=== PATIENT | female | born 1970 | race Caucasian/White ===

== ENCOUNTER 2016-07-31 05:47 | Emergency (ER) | payer SELFPAY ==
[2016-07-31 06:50] LABS: BASO % 0.4 % (0.0-1.0); EOS # 0.1 K/mm3 (0.0-0.50); EOS % 2.5 % (0.0-3.0); LARGE UNSTAINED CELL # 0.1 K/mm3 (0.0-0.4); LARGE UNSTAINED CELL % 2.4 % (0.0-4.0); LYMPH # 1.2 K/mm3 (1.5-4.5); LYMPH % 23.2 % (24.0-44.0); MEAN CORPUSCULAR HEMOGLOBIN 32.9 pg (27.0-33.0); MEAN CORPUSCULAR HGB CONC 34.4 g/dl (32.0-36.5); MEAN CORPUSCULAR VOLUME 95.5 fl (80.0-96.0); MONO # 0.3 K/mm3 (0.0-0.8); MONO % 5.9 % (0.0-5.0); NEUTROPHILS # 3.3 K/mm3 (1.8-7.7); NEUTROPHILS % 65.5 % (36.0-66.0); PLATELET COUNT, AUTOMATED 263 k/mm3 (150-450); RED CELL DISTRIBUTION WIDTH 12.9 % (11.5-14.5)
[2016-07-31 08:07] LABS: CONTROL LINE HCG INT CTR LINE PRESENT
[2016-07-31 08:13] LABS: ANION GAP 7 MEQ/L (8-16); BLOOD UREA NITROGEN 13 MG/DL (7-18); CALCIUM LEVEL 8.6 MG/DL (8.5-10.1); CARBON DIOXIDE LEVEL 26 MEQ/L (21-32); CHLORIDE LEVEL 107 MEQ/L (98-107); CREATININE FOR GFR 0.93 MG/DL (0.55-1.02); GLOMERULAR FILTRATION RATE > 60.0 (>58); GLUCOSE, FASTING 112 MG/DL (70-105); POTASSIUM SERUM 3.9 MEQ/L (3.5-5.1); SODIUM LEVEL 140 MEQ/L (136-145)
--- NOTE | 2016-07-31 08:31 | EDDOCDS ---
Physician Documentation [facility] Name: Janie Balderrama Age: 46 yrs Sex: Female : 1970 Arrival Date: 07/31/2016 Time: 05:47 Bed 8 Private MD: Disposition: 07/31/16 08:19 Discharged to Home/Self Care. Impression: Abnormal uterine and vaginal bleeding, unspecified. - Condition is Stable. - Discharge Instructions: Abnormal Uterine Bleeding. - Medication Reconciliation, Local Pharmacy Hours form. - Follow up: Rowdy Frazier MD; When: Today; Reason: Further diagnostic work-up, Continuance of care, To establish care. - Problem is new. - Symptoms have worsened. - Notes: Please go directly to Dr. Frazier's office for further evaluation of your abnormal vaginal bleeding. Although your hemoglobin or red blood cell level is currently stable, you could continue to bleed and have symptoms of light headedness, dizziness, or continued bleeding. Please return to the Emergency Room with further concerns. Historical: - Allergies: No known drug Allergies; - Home Meds: 1. none - PMHx: none; - PSHx: none; - Social history: Smoking status: Patient states was never smoker of tobacco. No barriers to communication noted, The patient speaks fluent Amharic, Speaks appropriately for age. - Family history: Not pertinent. - : The pt / caregiver states he / she is not on anticoagulants. Home medication list is obtained from the patient. - Exposure Risk Screening:: None identified. 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 4 in. (162.56 cm); Pain 9/10; 08:26 BP 145 / 91 RA Supine (auto/lg); Pulse 87; Resp 20; Temp 98.5; Pulse Ox 100% on R/A; rs6 Pain 0/10; 05:56 Body Mass Index 37.76 (99.79 kg, 162.56 cm) nn1 MDM: 06:00 IV Saline Lock ordered. br1 06:00 Set up pelvic ordered. br1 06:00 Undress patient ordered. br1 06:00 CBC with Diff Ordered. EDMS 06:00 BMP Ordered. EDMS 06:00 HCG,Serum Qualitative Ordered. EDMS 06:00 Type & Screen Ordered. EDMS 08:02 GC & Chlamydia Amplification Ordered. EDMS 08:02 Wet Prep Ordered. EDMS 08:06 Financial registration complete. lg Signatures: Dispatcher [employer] EDMS Rubia Wang, Reg Reg lg Marcel Le RN RN mlb1 Clark Godinez MD MD br1 Nicolle Gallagher RN RN nn1 Gisela Chacon MD MD fg MTDD
--- NOTE | 2016-07-31 08:31 | EDDOCDS ---
Nurse's Notes [facility] Name: Janie Balderrama Age: 46 yrs Sex: Female : 1970 Arrival Date: 07/31/2016 Time: 05:47 Bed 8 Private MD: Diagnosis: Abnormal uterine and vaginal bleeding, unspecified Presentation: 07/31 05:51 Presenting complaint: Patient states: last night she experienced pain on her left side. nn1 Patient reports menstrual period started Friday. At approximately 0330 this AM she reports having gush of blood, heavy bleeding since. Patient reports "contraction-like pain" since. Risk factors: This patient has not had a hysterectomy. This patient has not begun menopause. Suicide/Homicide risk assessment- the patient denies having any suicidal and/or homicidal ideations and does not present with any other emotional, behavioral or mental health complaints. Status: Patient is not a farm service consultant or dependent. Transition of care: patient was not received from another setting of care. 05:51 Acuity: REINA Level 3 nn1 05:51 Method Of Arrival: Walkin/Carried/Asstd nn1 07:44 Adult Sepsis Screening: The patient does not have new or worsening altered mentation. mlb1 Patient's respiratory rate is less than 22. Systolic blood pressure is greater than 100. Patient has a qSOFA score of 0- Negative Sepsis Screen. Triage Assessment: 05:53 General: Appears uncomfortable, Behavior is cooperative, crying. Pain: Location: nn1 suprapubic area Pain currently is 9 out of 10 on a pain scale. Pain began 3 hours ago. HIV screening NA for this visit Offered previously. The patient is triaged at the bedside. See Assessment in Nurses Notes section of ED record. Respiratory: Airway is patent Respiratory effort is even, unlabored, Respiratory pattern is regular, symmetrical. GI: Denies diarrhea, nausea, vomiting. : Reports cramping vaginal bleeding that is bright red with clots heavy flow since 0330. Derm: Skin is pink, warm & dry. 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 none - PMHx: none; - PSHx: none; - Social history: Smoking status: Patient states was never smoker of tobacco. No barriers to communication noted, The patient speaks fluent Nicaraguan, Speaks appropriately for age. - Family history: Not pertinent. - : The pt / caregiver states he / she is not on anticoagulants. Home medication list is obtained from the patient. - Exposure Risk Screening:: None identified. Screenin:57 Screening information is obtained from the patient. Fall risk: No risks identified. nn1 Assistance ADL's: requires no assistance with activities of daily living. Abuse/DV Screen: The patient / caregiver reports he/she is: not in a situation that causes fear, pain or injury. Nutritional screening: No deficits noted. Advance Directives: Currently, there is no health care proxy. There is no active DNR order. There is no living will. home support is adequate. Assessment: 06:41 General: Appears in no apparent distress, comfortable, Behavior is appropriate for age, af2 cooperative, reports she started her period on Friday, heavy bleeding since 299. states she cannot move without having blood gushing out.. 07:44 General: Appears in no apparent distress, comfortable, Behavior is appropriate for age, mlb1 cooperative. Pain: Denies pain. : Reports vaginal bleeding that is with clots heavy flow. Derm: Skin is pink, warm & dry. normal. 08:29 General: Appears in no apparent distress, comfortable, Behavior is appropriate for age, mlb1 cooperative. Pain: Denies pain. Respiratory: No deficits noted. Derm: No deficits noted. Vital Signs: 05:56 BP 152 / 92; Pulse 96; Resp 18; Temp 99.2; Pulse Ox 97% on R/A; Weight 99.79 kg; Height nn1 5 ft. 4 in. (162.56 cm); Pain 9/10; 08:26 BP 145 / 91 RA Supine (auto/lg); Pulse 87; Resp 20; Temp 98.5; Pulse Ox 100% on R/A; rs6 Pain 0/10; 05:56 Body Mass Index 37.76 (99.79 kg, 162.56 cm) nn1 Vitals: 05:56 Log In Time: July 31, 2016 at 05:49. nn1 ED Course: 05:49 Patient visited by Nell Duarte Reg. hs2 05:49 Patient moved to Waiting hs2 05:50 Patient moved to Triage 1 nn1 05:53 Triage Initiated nn1 05:57 Argueta,Cielo,RN is Primary Nurse. nn1 05:57 Patient moved to 8 nn1 06:41 Patient visited by Cielo Argueta RN. af2 06:41 Type & Screen Sent. af2 06:41 HCG,Serum Qualitative Sent. af2 06:41 BMP Sent. af2 06:41 CBC with Diff Sent. af2 06:42 The patient / caregiver is instructed regarding the plan of care and ED course. af2 06:43 Patient visited by Cielo Argueta RN. af2 06:43 Inserted saline lock: 18 gauge in left antecubital area and blood collected. The af2 patient tolerated the procedure well. 07:02 Gisela Chacon MD is Attending Physician. fg 07:02 Patient visited by Gisela Chacon MD. fg 07:06 Pt greeted and oriented to ED. Patient advised of names of staff involved in care, rs6 location of call fitzpatrick, wait times and NPO status. Patient has correct armband on for positive identification. Placed in gown. Bed in low position. Call light in reach. Side rails up X 1. Cardiac monitoring not applicable on this patient. 07:07 Patient visited by Asuncion Snyder PCA. rs6 07:35 Assist provider with pelvic exam: Set up pelvic tray. Specimens sent to lab. rs6 07:41 Patient visited by Asuncion Snyder PCA. rs6 07:45 Patient visited by Marcel Le, HAYLEY. mlb1 08:03 GC & Chlamydia Amplification Sent. mlb1 08:03 Wet Prep Sent. mlb1 08:19 Rowdy Frazier MD is Referral Physician. fg 08:27 Patient visited by Asuncion Snyder PCA. rs6 08:31 Patient visited by Marcel Le RN. mlb1 08:31 Discontinued lock intact, bleeding controlled, pressure dressing applied, No mlb1 redness/swelling at site. Order Results: Lab Order: CBC with Diff; SPEC'M 07/31/16 06:39 Test: WHITE BLOOD COUNT; Value: 5.0; Range: 4.0-10.0; Units: K/mm3; Status: F Test: RED BLOOD COUNT; Value: 4.00; Range: 4.00-5.40; Units: M/mm3; Status: F Test: HEMOGLOBIN; Value: 13.1; Range: 12.0-16.0; Units: g/dl; Status: F Test: HEMATOCRIT; Value: 38.2; Range: 36.0-47.0; Units: %; Status: F Test: MEAN CORPUSCULAR VOLUME; Value: 95.5; Range: 80.0-96.0; Units: fl; Status: F Test: MEAN CORPUSCULAR HEMOGLOBIN; Value: 32.9; Range: 27.0-33.0; Units: pg; Status: F Test: MEAN CORPUSCULAR HGB CONC; Value: 34.4; Range: 32.0-36.5; Units: g/dl; Status: F Test: RED CELL DISTRIBUTION WIDTH; Value: 12.9; Range: 11.5-14.5; Units: %; Status: F Test: PLATELET COUNT, AUTOMATED; Value: 263; Range: 150-450; Units: k/mm3; Status: F Test: NEUTROPHILS %; Value: 65.5; Range: 36.0-66.0; Units: %; Status: F Test: LYMPH %; Value: 23.2; Range: 24.0-44.0; Abnormal: Below low normal; Units: %; Status: F Test: MONO %; Value: 5.9; Range: 0.0-5.0; Abnormal: Above high normal; Units: %; Status: F Test: EOS %; Value: 2.5; Range: 0.0-3.0; Units: %; Status: F Test: BASO %; Value: 0.4; Range: 0.0-1.0; Units: %; Status: F Test: LARGE UNSTAINED CELL %; Value: 2.4; Range: 0.0-4.0; Units: %; Status: F Test: NEUTROPHILS #; Value: 3.3; Range: 1.8-7.7; Units: K/mm3; Status: F Test: LYMPH #; Value: 1.2; Range: 1.5-4.5; Abnormal: Below low normal; Units: K/mm3; Status: F Test: MONO #; Value: 0.3; Range: 0.0-0.8; Units: K/mm3; Status: F Test: EOS #; Value: 0.1; Range: 0.0-0.50; Units: K/mm3; Status: F Test: BASO #; Value: 0.0; Range: 0.0-0.2; Units: K/mm3; Status: F Test: LARGE UNSTAINED CELL #; Value: 0.1; Range: 0.0-0.4; Units: K/mm3; Status: F Lab Order: [facility]; SPEC'M 07/31/16 07:38 Test: GLUCOSE, FASTING; Value: 112; Range: 70-105; Abnormal: Above high normal; Units: MG/DL; Status: F Test: BLOOD UREA NITROGEN; Value: 13; Range: 7-18; Units: MG/DL; Status: F Test: CREATININE FOR GFR; Value: 0.93; Range: 0.55-1.02; Units: MG/DL; Status: F Test: SODIUM LEVEL; Range: 136-145; Units: MEQ/L; Status: I Test: POTASSIUM SERUM; Range: 3.5-5.1; Units: MEQ/L; Status: I Test: CHLORIDE LEVEL; Range: 98-107; Units: MEQ/L; Status: I Test: CARBON DIOXIDE LEVEL; Range: 21-32; Units: MEQ/L; Status: I Test: ANION GAP; Range: 8-16; Units: MEQ/L; Status: I Test: CALCIUM LEVEL; Range: 8.5-10.1; Units: MG/DL; Status: I Test: GLOMERULAR FILTRATION RATE; Value: > 60.0; Range: >58; Status: F Test: SODIUM LEVEL; Value: 140; Range: 136-145; Units: MEQ/L; Status: F Test: POTASSIUM SERUM; Value: 3.9; Range: 3.5-5.1; Units: MEQ/L; Status: F Test: CHLORIDE LEVEL; Value: 107; Range: 98-107; Units: MEQ/L; Status: F Test: CARBON DIOXIDE LEVEL; Value: 26; Range: 21-32; Units: MEQ/L; Status: F Test: ANION GAP; Value: 7; Range: 8-16; Abnormal: Below low normal; Units: MEQ/L; Status: F Test: CALCIUM LEVEL; Value: 8.6; Range: 8.5-10.1; Units: MG/DL; Status: F Test Note: ; Units are mL/min/1.73 m2 Chronic Kidney Disease Staging per NKF: Stage I & II GFR >=60 Normal to Mildly Decreased Stage III GFR 30-59 Moderately Decreased Stage IV GFR 15-29 Severely Decreased Stage V GFR <15 Very Little GFR Left ESRD GFR <15 on PIPE STRESS ENGINEER Lab Order: HCG,Serum Qualitative; SPEC'M 07/31/16 07:38 Test: HCG, SERUM QUALITATIVE; Value: NEGATIVE; Range: NEGATIVE; Status: F Lab Order: Type & Screen; SPEC'M 07/31/16 06:39 Test: BLOOD TYPE; Value: O POS; Status: F Test: AB SCREEN (INDIRECT ENRIQUETA)GEL; Value: NEGATIVE; Status: F Lab Order: Wet Prep; SPEC'M 07/31/16 07:38 Test: WET PREP; Value: WET PREP RESULT; Status: F Test: WET PREP; Value: MANY RBC; Status: F Test: WET PREP; Value: FEW EPITHELIAL CELLS PRESENT; Status: F Test: WET PREP; Value: NO ORGANISMS NOTED; Status: F Outcome: 08:19 Discharge ordered by Provider. 08:29 Discharge Assessment: Patient awake, alert and oriented x 3. No cognitive and/or mlb1 functional deficits noted. Patient verbalized understanding of disposition instructions. patient administered narcotics - no. The following High Risk Discharge criteria are identified: None. Discharged to home ambulatory, with friend. Condition: good. Discharge instructions given to patient, Instructed on discharge instructions, follow up and referral plans. Demonstrated understanding of instructions, Pt was receptive of discharge instructions/ teaching. No special radiology studies were completed. Property sent home with patient. 08:31 Patient left the ED. mlb1 Signatures: Marcel Le RN RN mlb1 Asuncion Snyder, ELECTRICAL LINEWORKER ELECTRICAL LINEWORKER rs6 Cielo Argueta,RN RN af2 Nicolle Gallagher,RN RN nn1 Gisela Chacon MD MD Nell Duarte, Reg Reg hs2 MTDD
--- NOTE | 2016-08-02 09:32 | EDDOCDS ---
Physician Documentation [facility] Name: Janie Balderrama Age: 46 yrs Sex: Female : 1970 Arrival Date: 07/31/2016 Time: 05:47 Bed 8 Private MD: Disposition: 07/31/16 08:19 Discharged to Home/Self Care. Impression: Abnormal uterine and vaginal bleeding, unspecified. - Condition is Stable. - Discharge Instructions: Abnormal Uterine Bleeding. - Medication Reconciliation, Local Pharmacy Hours form. - Follow up: Rowdy Frazier MD; When: Today; Reason: Further diagnostic work-up, Continuance of care, To establish care. - Problem is new. - Symptoms have worsened. - Notes: Please go directly to Dr. Frazier's office for further evaluation of your abnormal vaginal bleeding. Although your hemoglobin or red blood cell level is currently stable, you could continue to bleed and have symptoms of light headedness, dizziness, or continued bleeding. Please return to the Emergency Room with further concerns. Historical: - Allergies: No known drug Allergies; - Home Meds: 1. none - PMHx: none; - PSHx: none; - Social history: Smoking status: Patient states was never smoker of tobacco. No barriers to communication noted, The patient speaks fluent Urdu, Speaks appropriately for age. - Family history: Not pertinent. - : The pt / caregiver states he / she is not on anticoagulants. Home medication list is obtained from the patient. - Exposure Risk Screening:: None identified. 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 4 in. (162.56 cm); Pain 9/10; 08:26 BP 145 / 91 RA Supine (auto/lg); Pulse 87; Resp 20; Temp 98.5; Pulse Ox 100% on R/A; rs6 Pain 0/10; 05:56 Body Mass Index 37.76 (99.79 kg, 162.56 cm) nn1 MDM: 06:00 IV Saline Lock ordered. br1 06:00 Set up pelvic ordered. br1 06:00 Undress patient ordered. br1 06:00 CBC with Diff Ordered. EDMS 06:00 BMP Ordered. EDMS 06:00 HCG,Serum Qualitative Ordered. EDMS 06:00 Type & Screen Ordered. EDMS 08:02 GC & Chlamydia Amplification Ordered. EDMS 08:02 Wet Prep Ordered. EDMS 08:06 Financial registration complete. lg 08:47 [facility] Payment Agreement was scanned into [employer] and attached to record. lg 13:56 T-Sheet-- Draft Copy was scanned into [employer] and attached to record. gb Signatures: Dispatcher [employer] EDMS Landy Rose, Reg Reg gb Rubia Wang, Reg Reg lg Marcel Le RN RN mlb1 Clark Godinez MD MD br1 Nicolle GallagherRN RN nn1 Gisela Chacon MD MD fg The chart was reviewed and I authenticate all verbal orders and agree with the evaluation and treatment provided.Attachments: 08:47 [facility] Payment Agreement lg 13:56 T-Sheet-- Draft Copy gb Chart Complete MTDD
--- NOTE | 2016-08-02 09:32 | EDDOCDS ---
Nurse's Notes [facility] Name: Janie Balderrama Age: 46 yrs Sex: Female : 1970 Arrival Date: 07/31/2016 Time: 05:47 Bed 8 Private MD: Diagnosis: Abnormal uterine and vaginal bleeding, unspecified Presentation: 07/31 05:51 Presenting complaint: Patient states: last night she experienced pain on her left side. nn1 Patient reports menstrual period started Friday. At approximately 0330 this AM she reports having gush of blood, heavy bleeding since. Patient reports "contraction-like pain" since. Risk factors: This patient has not had a hysterectomy. This patient has not begun menopause. Suicide/Homicide risk assessment- the patient denies having any suicidal and/or homicidal ideations and does not present with any other emotional, behavioral or mental health complaints. 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 Transition of care: patient was not received from another setting of care. 05:51 Acuity: REINA Level 3 nn1 05:51 Method Of Arrival: Walkin/Carried/Asstd nn1 07:44 Adult Sepsis Screening: The patient does not have new or worsening altered mentation. mlb1 Patient's respiratory rate is less than 22. Systolic blood pressure is greater than 100. Patient has a qSOFA score of 0- Negative Sepsis Screen. Triage Assessment: 05:53 General: Appears uncomfortable, Behavior is cooperative, crying. Pain: Location: nn1 suprapubic area Pain currently is 9 out of 10 on a pain scale. Pain began 3 hours ago. HIV screening NA for this visit Offered previously. The patient is triaged at the bedside. See Assessment in Nurses Notes section of ED record. Respiratory: Airway is patent Respiratory effort is even, unlabored, Respiratory pattern is regular, symmetrical. GI: Denies diarrhea, nausea, vomiting. : Reports cramping vaginal bleeding that is bright red with clots heavy flow since 0330. Derm: Skin is pink, warm & dry. 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 none - PMHx: none; - PSHx: none; - Social history: Smoking status: Patient states was never smoker of tobacco. No barriers to communication noted, The patient speaks fluent Lebanese, Speaks appropriately for age. - Family history: Not pertinent. - : The pt / caregiver states he / she is not on anticoagulants. Home medication list is obtained from the patient. - Exposure Risk Screening:: None identified. Screenin:57 Screening information is obtained from the patient. Fall risk: No risks identified. nn1 Assistance ADL's: requires no assistance with activities of daily living. Abuse/DV Screen: The patient / caregiver reports he/she is: not in a situation that causes fear, pain or injury. Nutritional screening: No deficits noted. Advance Directives: Currently, there is no health care proxy. There is no active DNR order. There is no living will. home support is adequate. Assessment: 06:41 General: Appears in no apparent distress, comfortable, Behavior is appropriate for age, af2 cooperative, reports she started her period on Friday, heavy bleeding since 299. states she cannot move without having blood gushing out.. 07:44 General: Appears in no apparent distress, comfortable, Behavior is appropriate for age, mlb1 cooperative. Pain: Denies pain. : Reports vaginal bleeding that is with clots heavy flow. Derm: Skin is pink, warm & dry. normal. 08:29 General: Appears in no apparent distress, comfortable, Behavior is appropriate for age, mlb1 cooperative. Pain: Denies pain. Respiratory: No deficits noted. Derm: No deficits noted. Vital Signs: 05:56 BP 152 / 92; Pulse 96; Resp 18; Temp 99.2; Pulse Ox 97% on R/A; Weight 99.79 kg; Height nn1 5 ft. 4 in. (162.56 cm); Pain 9/10; 08:26 BP 145 / 91 RA Supine (auto/lg); Pulse 87; Resp 20; Temp 98.5; Pulse Ox 100% on R/A; rs6 Pain 0/10; 05:56 Body Mass Index 37.76 (99.79 kg, 162.56 cm) nn1 Vitals: 05:56 Log In Time: July 31, 2016 at 05:49. nn1 ED Course: 05:49 Patient visited by Nell Duarte Reg. hs2 05:49 Patient moved to Waiting hs2 05:50 Patient moved to Triage 1 nn1 05:53 Triage Initiated nn1 05:57 Argueta,Cielo,RN is Primary Nurse. nn1 05:57 Patient moved to 8 nn1 06:41 Patient visited by Cielo Argueta RN. af2 06:41 Type & Screen Sent. af2 06:41 HCG,Serum Qualitative Sent. af2 06:41 BMP Sent. af2 06:41 CBC with Diff Sent. af2 06:42 The patient / caregiver is instructed regarding the plan of care and ED course. af2 06:43 Patient visited by Cielo Argueta RN. af2 06:43 Inserted saline lock: 18 gauge in left antecubital area and blood collected. The af2 patient tolerated the procedure well. 07:02 Gisela Chacon MD is Attending Physician. fg 07:02 Patient visited by Gisela Chacon MD. fg 07:06 Pt greeted and oriented to ED. Patient advised of names of staff involved in care, rs6 location of call fitz[place], wait times and NPO status. Patient has correct armband on for positive identification. Placed in gown. Bed in low position. Call light in reach. Side rails up X 1. Cardiac monitoring not applicable on this patient. 07:07 Patient visited by Asuncion Snyder PCA. rs6 07:35 Assist provider with pelvic exam: Set up pelvic tray. Specimens sent to lab. rs6 07:41 Patient visited by Asuncion Snyder PCA. rs6 07:45 Patient visited by Marcel Le, HAYLEY. mlb1 08:03 GC & Chlamydia Amplification Sent. mlb1 08:03 Wet Prep Sent. mlb1 08:19 Rowdy Frazier MD is Referral Physician. fg 08:27 Patient visited by Asuncion Snyder PCA. rs6 08:31 Patient visited by Marcel Le, HAYLEY. mlb1 08:31 Discontinued lock intact, bleeding controlled, pressure dressing applied, No mlb1 redness/swelling at site. 08:47 [facility] Payment Agreement was scanned into [employer] and attached to record. lg 13:56 T-Sheet-- Draft Copy was scanned into [employer] and attached to record. gb Order Results: Lab Order: CBC with Diff; SPEC'M 07/31/16 06:39 Test: WHITE BLOOD COUNT; Value: 5.0; Range: 4.0-10.0; Units: K/mm3; Status: F Test: RED BLOOD COUNT; Value: 4.00; Range: 4.00-5.40; Units: M/mm3; Status: F Test: HEMOGLOBIN; Value: 13.1; Range: 12.0-16.0; Units: g/dl; Status: F Test: HEMATOCRIT; Value: 38.2; Range: 36.0-47.0; Units: %; Status: F Test: MEAN CORPUSCULAR VOLUME; Value: 95.5; Range: 80.0-96.0; Units: fl; Status: F Test: MEAN CORPUSCULAR HEMOGLOBIN; Value: 32.9; Range: 27.0-33.0; Units: pg; Status: F Test: MEAN CORPUSCULAR HGB CONC; Value: 34.4; Range: 32.0-36.5; Units: g/dl; Status: F Test: RED CELL DISTRIBUTION WIDTH; Value: 12.9; Range: 11.5-14.5; Units: %; Status: F Test: PLATELET COUNT, AUTOMATED; Value: 263; Range: 150-450; Units: k/mm3; Status: F Test: NEUTROPHILS %; Value: 65.5; Range: 36.0-66.0; Units: %; Status: F Test: LYMPH %; Value: 23.2; Range: 24.0-44.0; Abnormal: Below low normal; Units: %; Status: F Test: MONO %; Value: 5.9; Range: 0.0-5.0; Abnormal: Above high normal; Units: %; Status: F Test: EOS %; Value: 2.5; Range: 0.0-3.0; Units: %; Status: F Test: BASO %; Value: 0.4; Range: 0.0-1.0; Units: %; Status: F Test: LARGE UNSTAINED CELL %; Value: 2.4; Range: 0.0-4.0; Units: %; Status: F Test: NEUTROPHILS #; Value: 3.3; Range: 1.8-7.7; Units: K/mm3; Status: F Test: LYMPH #; Value: 1.2; Range: 1.5-4.5; Abnormal: Below low normal; Units: K/mm3; Status: F Test: MONO #; Value: 0.3; Range: 0.0-0.8; Units: K/mm3; Status: F Test: EOS #; Value: 0.1; Range: 0.0-0.50; Units: K/mm3; Status: F Test: BASO #; Value: 0.0; Range: 0.0-0.2; Units: K/mm3; Status: F Test: LARGE UNSTAINED CELL #; Value: 0.1; Range: 0.0-0.4; Units: K/mm3; Status: F Lab Order: [facility]; SPEC'M 07/31/16 07:38 Test: GLUCOSE, FASTING; Value: 112; Range: 70-105; Abnormal: Above high normal; Units: MG/DL; Status: F Test: BLOOD UREA NITROGEN; Value: 13; Range: 7-18; Units: MG/DL; Status: F Test: CREATININE FOR GFR; Value: 0.93; Range: 0.55-1.02; Units: MG/DL; Status: F Test: SODIUM LEVEL; Range: 136-145; Units: MEQ/L; Status: I Test: POTASSIUM SERUM; Range: 3.5-5.1; Units: MEQ/L; Status: I Test: CHLORIDE LEVEL; Range: 98-107; Units: MEQ/L; Status: I Test: CARBON DIOXIDE LEVEL; Range: 21-32; Units: MEQ/L; Status: I Test: ANION GAP; Range: 8-16; Units: MEQ/L; Status: I Test: CALCIUM LEVEL; Range: 8.5-10.1; Units: MG/DL; Status: I Test: GLOMERULAR FILTRATION RATE; Value: > 60.0; Range: >58; Status: F Test: SODIUM LEVEL; Value: 140; Range: 136-145; Units: MEQ/L; Status: F Test: POTASSIUM SERUM; Value: 3.9; Range: 3.5-5.1; Units: MEQ/L; Status: F Test: CHLORIDE LEVEL; Value: 107; Range: 98-107; Units: MEQ/L; Status: F Test: CARBON DIOXIDE LEVEL; Value: 26; Range: 21-32; Units: MEQ/L; Status: F Test: ANION GAP; Value: 7; Range: 8-16; Abnormal: Below low normal; Units: MEQ/L; Status: F Test: CALCIUM LEVEL; Value: 8.6; Range: 8.5-10.1; Units: MG/DL; Status: F Test Note: ; Units are mL/min/1.73 m2 Chronic Kidney Disease Staging per NKF: Stage I & II GFR >=60 Normal to Mildly Decreased Stage III GFR 30-59 Moderately Decreased Stage IV GFR 15-29 Severely Decreased Stage V GFR <15 Very Little GFR Left ESRD GFR <15 on FLATCAR WHACKER Lab Order: HCG,Serum Qualitative; SPEC' 07/31/16 07:38 Test: HCG, SERUM QUALITATIVE; Value: NEGATIVE; Range: NEGATIVE; Status: F Lab Order: Type & Screen; [facility] 07/31/16 06:39 Test: BLOOD TYPE; Value: O POS; Status: F Test: AB SCREEN (INDIRECT ENRIQUETA)GEL; Value: NEGATIVE; Status: F Lab Order: Wet Prep; [facility] 07/31/16 07:38 Test: WET PREP; Value: WET PREP RESULT; Status: F Test: WET PREP; Value: MANY RBC; Status: F Test: WET PREP; Value: FEW EPITHELIAL CELLS PRESENT; Status: F Test: WET PREP; Value: NO ORGANISMS NOTED; Status: F Lab Order: GC & Chlamydia Amplification; [facility] 07/31/16 07:38 Test: CHLAMYDIA DNA AMPLIFICATION; Value: TNP; Range: NEGATIVE; Status: F Test: GC DNA AMPLIFICATION; Value: TNP; Range: NEGATIVE; Status: F Test Note: ; Please submit repeat sample. The presence or absence of Chlamydia trachomatis and Neisseria gonorrhoeae cannot be determined. Outcome: 08:19 Discharge ordered by Provider. fg 08:29 Discharge Assessment: Patient awake, alert and oriented x 3. No cognitive and/or mlb1 functional deficits noted. Patient verbalized understanding of disposition instructions. patient administered narcotics - no. The following High Risk Discharge criteria are identified: None. Discharged to home ambulatory, with friend. Condition: good. Discharge instructions given to patient, Instructed on discharge instructions, follow up and referral plans. Demonstrated understanding of instructions, Pt was receptive of discharge instructions/ teaching. No special radiology studies were completed. Property sent home with patient. 08:31 Patient left the ED. mlb1 Signatures: Landy Rose, Reg Reg gb Rubia Wang, Reg Reg lg Marcel Le, RN RN mlb1 Asuncion Snyder, CRATING AND MOVING ESTIMATOR CRATING AND MOVING ESTIMATOR rs6 Cielo Argueta,RN RN af2 Nicolle Gallagher,RN RN nn1 Gisela Chacon MD MD Nell Duarte, Reg Reg hs2 Chart Complete MTDD
--- NOTE | 2016-08-02 09:32 | EDDOCDS ---
Physician Documentation [facility] Name: Janie Balderrama Age: 46 yrs Sex: Female : 1970 Arrival Date: 07/31/2016 Time: 05:47 Bed 8 Private MD: Disposition: 07/31/16 08:19 Discharged to Home/Self Care. Impression: Abnormal uterine and vaginal bleeding, unspecified. - Condition is Stable. - Discharge Instructions: Abnormal Uterine Bleeding. - Medication Reconciliation, Local Pharmacy Hours form. - Follow up: Rowdy Frazier MD; When: Today; Reason: Further diagnostic work-up, Continuance of care, To establish care. - Problem is new. - Symptoms have worsened. - Notes: Please go directly to Dr. Frazier's office for further evaluation of your abnormal vaginal bleeding. Although your hemoglobin or red blood cell level is currently stable, you could continue to bleed and have symptoms of light headedness, dizziness, or continued bleeding. Please return to the Emergency Room with further concerns. Historical: - Allergies: No known drug Allergies; - Home Meds: 1. none - PMHx: none; - PSHx: none; - Social history: Smoking status: Patient states was never smoker of tobacco. No barriers to communication noted, The patient speaks fluent Chinese, Speaks appropriately for age. - Family history: Not pertinent. - : The pt / caregiver states he / she is not on anticoagulants. Home medication list is obtained from the patient. - Exposure Risk Screening:: None identified. 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 4 in. (162.56 cm); Pain 9/10; 08:26 BP 145 / 91 RA Supine (auto/lg); Pulse 87; Resp 20; Temp 98.5; Pulse Ox 100% on R/A; rs6 Pain 0/10; 05:56 Body Mass Index 37.76 (99.79 kg, 162.56 cm) nn1 MDM: 06:00 IV Saline Lock ordered. br1 06:00 Set up pelvic ordered. br1 06:00 Undress patient ordered. br1 06:00 CBC with Diff Ordered. EDMS 06:00 BMP Ordered. EDMS 06:00 HCG,Serum Qualitative Ordered. EDMS 06:00 Type & Screen Ordered. EDMS 08:02 GC & Chlamydia Amplification Ordered. EDMS 08:02 Wet Prep Ordered. EDMS 08:06 Financial registration complete. lg 08:47 [facility] Payment Agreement was scanned into [employer] and attached to record. lg 13:56 T-Sheet-- Draft Copy was scanned into [employer] and attached to record. gb Signatures: Dispatcher [employer] EDMS Landy Rose, Reg Reg gb Rubia Wang, Reg Reg lg Marcel Le RN RN mlb1 Clark Godinez MD MD br1 Nicolle GallagherRN RN nn1 Gisela hCacon MD MD fg The chart was reviewed and I authenticate all verbal orders and agree with the evaluation and treatment provided.Attachments: 08:47 [facility] Payment Agreement lg 13:56 T-Sheet-- Draft Copy gb Chart Complete MTDD
== END 2016-07-31 08:31 | disposition home or self-care (01) ==
LOC: M ED 05:47
DX: N93.8 Other specified abnormal uterine and vaginal bleeding (principal)

== ENCOUNTER → 2016-07-31 | Outpatient (REF) | payer SELFPAY | LOC: M LAB REF 12:50 | PROVIDERS: ATTEND Specialist | DX: N93.9 Abnormal uterine and vaginal bleeding, unspecified (principal) ==

== ENCOUNTER 2018-10-15 19:02 | Emergency (ER) | payer SELFPAY ==
[~2018-10-15] VITALS: Ht 162.6 cm; Wt 104.5 kg
[2018-10-15 21:05] LABS: BASO % 0.6 % (0.0-1.0); EOS # 0.2 10^3/uL (0.0-0.50); EOS % 2.4 % (0.0-3.0); HEMATOCRIT 39.7 % (36.0-47.0); HEMOGLOBIN 13.1 g/dl (12.0-15.5); LYMPH # 2.7 10^3/uL (1.5-4.5); LYMPH % 40.4 % (24.0-44.0); MEAN CORPUSCULAR HEMOGLOBIN 31.7 pg (27.0-33.0); MEAN CORPUSCULAR VOLUME 96.1 fl (80.0-96.0); MONO # 0.6 10^3/uL (0.0-0.8); MONO % 8.8 % (0.0-5.0); NEUTROPHILS # 3.2 10^3/uL (1.8-7.7); NEUTROPHILS % 47.5 % (36.0-66.0); PLATELET COUNT, AUTOMATED 324 10^3/uL (150-450); RED BLOOD COUNT 4.13 10^6/uL (4.00-5.40); WHITE BLOOD COUNT 6.8 10^3/uL (4.0-10.0)
[2018-10-15 21:20] LABS: INR 1.02; PROTHROMBIN TIME 13.5 SECONDS (12.1-14.4)
[2018-10-15 21:21] LABS: PARTIAL THROMBOPLASTIN TIME 29.7 SECONDS (25.4-37.6)
[2018-10-15 21:23] LABS: BLOOD UREA NITROGEN 10 MG/DL (7-18); CALCIUM LEVEL 8.7 MG/DL (8.5-10.1); CARBON DIOXIDE LEVEL 26 MEQ/L (21-32); CHLORIDE LEVEL 106 MEQ/L (98-107); GLOMERULAR FILTRATION RATE > 60.0 (>58); GLUCOSE, FASTING 94 MG/DL (70-100); POTASSIUM SERUM 4.1 MEQ/L (3.5-5.1); SODIUM LEVEL 138 MEQ/L (136-145)
[2018-10-15 23:05] LABS: BILIRUBIN, URINE MANUAL NEGATIVE (NEGATIVE); GLUCOSE, URINE (UA) MANUAL NEGATIVE (NEGATIVE); KETONE, URINE MANUAL NEGATIVE (NEGATIVE); UROBILINOGEN, URINE MANUAL NORMAL (NORMAL)
[2018-10-15 23:08] LABS: RBC, URINE TNTC /hpf (0-3)
[2018-10-15 23:10] LABS: BACTERIA, URINE SMALL AMOUNT; HYALINE CAST, URINE NONE SEEN /lpf (0-1); MUCUS, URINE SMALL AMOUNT (NEGATIVE); SQUAMOUS EPITHELIAL CELL URINE SMALL AMOUNT /hpf (SMALL AMT)
--- NOTE | 2018-10-15 23:56 | REPVR ---
EXAM: US Pelvis Complete, Transabdominal EXAM DATE/TIME: 10/15/2018 11:18 PM CLINICAL HISTORY: 48 years old, female; Pain; Pelvic pain; Additional info: Heavy vaginal bleeding TECHNIQUE: Imaging protocol: Real-time transabdominal pelvic ultrasound with image documentation. Complete exam. COMPARISON: No relevant prior studies available. FINDINGS: Uterus/cervix: Mildly enlarged anteverted heterogeneous uterus measuring 9.9 x 5.9 x 7.5 cm. Suggestion of adenomyosis. Endometrial thickness is normal measuring 5.6 mm. Right adnexa: Right ovary measures 4.1 x 3.0 x 3.4 cm. Cyst in the right ovary measuring 3.0 x 3.8 x 2.6 cm. Normal vascular flow is seen. No evidence of ovarian torsion. Left adnexa: Left ovary is not seen. Free fluid: None. Bladder: Normal. IMPRESSION: Right ovarian cyst measuring 3.0 x 3.8 x 2.6 cm. No evidence of torsion. Left ovary is not seen. Mildly enlarged anteverted uterus with suggestion of adenomyosis. Normal endometrial stripe measuring 5.6 mm. Electronically signed by: Nohemi Burt On 10/15/2018 23:55:58 PM
[2018-10-16] MEDS ORDERED: KETO10TAB PO (00:46)
[2018-10-16 00:51] VITALS: BP 138/89
== END 2018-10-16 00:59 | disposition home or self-care (01) ==
LOC: M ED 19:02
DX: N93.8 Other specified abnormal uterine and vaginal bleeding (principal); N83.201 Unspecified ovarian cyst, right side; N80.0 Endometriosis of uterus

== ENCOUNTER → 2019-09-23 | Outpatient (CLI) | payer SELFPAY ==
[~2019-09-23] MED LIST: KETO10TAB PO
[2019-09-23 20:14] LABS: ALBUMIN 3.7 GM/DL (3.2-5.2); ALT/SGPT 31 U/L (12-78); BILIRUBIN,TOTAL 0.5 MG/DL (0.2-1.0); BLOOD UREA NITROGEN 12 MG/DL (7-18); CALCIUM LEVEL 9.2 MG/DL (8.5-10.1); CARBON DIOXIDE LEVEL 28 MEQ/L (21-32); CHLORIDE LEVEL 106 MEQ/L (98-107); CREATININE FOR GFR 0.83 MG/DL (0.55-1.30); GLOMERULAR FILTRATION RATE > 60.0 (>58); GLUCOSE, FASTING 108 MG/DL (70-100); POTASSIUM SERUM 4.5 MEQ/L (3.5-5.1); SODIUM LEVEL 138 MEQ/L (136-145); TOTAL PROTEIN 8.1 GM/DL (6.4-8.2)
[2019-09-23 20:32] LABS: HEMOGLOBIN 12.8 g/dl (12.0-15.5); MEAN CORPUSCULAR HEMOGLOBIN 28.2 pg (27.0-33.0); MEAN CORPUSCULAR HGB CONC 31.2 g/dl (32.0-36.5); MEAN CORPUSCULAR VOLUME 90.3 fl (80.0-96.0); PLATELET COUNT, AUTOMATED 296 10^3/uL (150-450); RED BLOOD COUNT 4.54 10^6/uL (4.00-5.40); WHITE BLOOD COUNT 7.6 10^3/uL (4.0-10.0)
== END ==
LOC: M WUC 16:14
PROVIDERS: ATTEND Nurse Practitioner Family
DX: R30.0 Dysuria (principal)

== ENCOUNTER 2019-11-12 04:52 | Emergency (ER) | payer MEDICAID, OTHER, SELFPAY ==
[~2019-11-12] VITALS: Ht 162.6 cm; Wt 111.1 kg
[2019-11-12] MEDS ORDERED: LISI10TA4 (04:57)
[2019-11-12 05:14] LABS: BASO # 0.1 10^3/uL (0.0-0.2); BASO % 0.7 % (0.0-1.0); EOS # 0.2 10^3/uL (0.0-0.5); EOS % 3.1 % (0.0-3.0); HEMATOCRIT 38.3 % (36.0-47.0); HEMOGLOBIN 12.7 g/dl (12.0-15.5); LYMPH # 1.9 10^3/uL (1.5-5.0); LYMPH % 26.4 % (24.0-44.0); MEAN CORPUSCULAR HEMOGLOBIN 30.4 pg (27.0-33.0); MEAN CORPUSCULAR HGB CONC 33.2 g/dl (32.0-36.5); MEAN CORPUSCULAR VOLUME 91.6 fl (80.0-96.0); MONO # 0.6 10^3/uL (0.0-0.8); MONO % 8.3 % (0.0-5.0); NEUTROPHILS # 4.5 10^3/uL (1.5-8.5); PLATELET COUNT, AUTOMATED 251 10^3/uL (150-450); RED BLOOD COUNT 4.18 10^6/uL (4.00-5.40); WHITE BLOOD COUNT 7.4 10^3/uL (4.0-10.0)
[2019-11-12 05:35] LABS: ALBUMIN 3.3 GM/DL (3.2-5.2); ALT/SGPT 27 U/L (12-78); BILIRUBIN,DIRECT 0.2 MG/DL (0.0-0.2); BILIRUBIN,TOTAL 0.5 MG/DL (0.2-1.0); BLOOD UREA NITROGEN 17 MG/DL (7-18); CALCIUM LEVEL 9.5 MG/DL (8.5-10.1); CARBON DIOXIDE LEVEL 26 MEQ/L (21-32); CHLORIDE LEVEL 105 MEQ/L (98-107); GLOMERULAR FILTRATION RATE > 60.0 (>58); GLUCOSE, FASTING 110 MG/DL (70-100); LIPASE 286 U/L (73-393); POTASSIUM SERUM 4.1 MEQ/L (3.5-5.1); SODIUM LEVEL 138 MEQ/L (136-145); TOTAL PROTEIN 7.2 GM/DL (6.4-8.2)
[2019-11-12 05:39] LABS: HCG, SERUM QUALITATIVE NEGATIVE (NEGATIVE)
[2019-11-12] MEDS ORDERED: MORPHINE 4 MG/ML 1ML VIAL/SYRINGE (J2270) IV ONE (05:45)
[2019-11-12] MEDS ORDERED: NS 1,000 ML IV ONE ×2 (05:45→08:30)
[2019-11-12 07:26] LABS: AMORPHOUS SEDIMENT SMALL (NEGATIVE); APPEARANCE, URINE CLOUDY (CLEAR); BACTERIA, URINE AUTO 1+ (NEGATIVE); BILIRUBIN, URINE AUTO NEGATIVE (NEGATIVE); BLOOD, URINE BLOOD NEGATIVE (NEGATIVE); COLOR, URINE YELLOW (YELLOW); GLUCOSE, URINE (UA) AUTO NEGATIVE (NEGATIVE); KETONE, URINE AUTO NEGATIVE (NEGATIVE); LEUKOCYTE ESTERASE, URINE AUTO 3+ (NEGATIVE); MUCUS, URINE SMALL (NEGATIVE); NITRITE, URINE AUTO NEGATIVE (NEGATIVE); PROTEIN, URINE AUTO NEGATIVE (NEGATIVE); RBC, URINE AUTO 13 /HPF (0-3); SPECIFIC GRAVITY URINE AUTO 1.017 (1.002-1.035); SQUAMOUS EPITHELIAL CELL UR AU 27 /HPF (0-6); TRANSITIONAL EPITHELIAL AUTO 2 /HPF; UROBILINOGEN, URINE AUTO 0.2 mg/dL (0.0-2.0); WBC, URINE AUTO 6 /HPF (0-3)
[2019-11-12] MEDS ORDERED: KETOROLAC 30 MG/ML 1ML VIAL IV ONE (08:30)
[2019-11-12 09:31] VITALS: BP 150/89
--- NOTE | 2019-11-12 09:46 | REP ---
CT ABDOMEN AND PELVIS WITHOUT CONTRAST: CT abdomen and pelvis performed without oral or IV contrast. Sagittal and coronal reconstruction images are performed. Minor fibrotic changes are seen in the visualized lung bases. Liver is mildly enlarged measuring about 19 cm in length. Spleen is normal in size. The adrenal glands are normal. Pancreas demonstrates no gross abnormality. Probably subcentimeter cyst is seen in the mid left kidney laterally. No renal, ureteral or bladder calculus is seen. There is no hydroureteronephrosis. There is no abdominal aortic aneurysm. There is no adenopathy. There is no free air or free fluid. There is no bowel wall thickening. The appendix is normal. Multiple gallstones are seen in the dependent portion of the gallbladder with no gallbladder wall edema. The uterus is enlarged and appears to have somewhat lobulated contours suggesting fibroid changes. There is 3.8 cm cyst of the left ovary. No other pelvic mass is seen. Urinary bladder is mildly distended and grossly unremarkable. IMPRESSION: No renal or ureteral calculus and no hydroureteronephrosis. Normal appendix. Mild hepatomegaly. Multiple gallstones in the gallbladder with no gallbladder wall thickening or edema. Left ovarian cyst 3.8 cm in maximum diameter. No free air or free fluid. Probable fibroid uterus. A preliminary report was provided by [facility] at the time of the exam. Electronically Signed by Elliott Block MD 11/12/2019 11:24 A
== END 2019-11-12 09:53 | disposition left against medical advice (07) ==
LOC: M ED 04:52
DX: K80.20 Calculus of gallbladder without cholecystitis without obstruction (principal); N83.202 Unspecified ovarian cyst, left side; Z53.21 Procedure and treatment not carried out due to patient leaving prior to being seen by health care provider; E66.9 Obesity, unspecified; Z79.899 Other long term (current) drug therapy
CPT/HCPCS: 36415; 74176; 80048; 80076; 81001; 83690; 84703; 85025; 96361; 96374; 96375; 99284; J1885; J2270

== ENCOUNTER → 2020-09-07 | Outpatient (REF) | payer OTHER, MEDICAID ==
[~2020-09-07] MED LIST changes: +LISI10TA22
[2020-09-07 17:51] LABS: HEMOGLOBIN A1c 6.1 %
[2020-09-07 18:13] LABS: CHOLESTEROL LEVEL 207 MG/DL (<200); CHOLESTEROL RISK RATIO 4.813 (<5); HDL CHOLESTEROL 43 MG/DL (>40); LDL CHOLESTEROL 129 MG/DL (<100); NON-HDL-C 164 MG/DL; TRIGLYCERIDES LEVEL 175 MG/DL (<150)
[2020-09-07 18:54] LABS: HEPATITIS C VIRUS ABY INDEX < 0.0 INDEX (<0.8)
[2020-09-07 18:55] LABS: HIV 1&2 SCREEN CENTAUR NEGATIVE (NEGATIVE)
== END ==
LOC: M SFHCPLAZ 15:14
DX: Z00.00 Encounter for general adult medical examination without abnormal findings (principal)

== ENCOUNTER → 2020-10-10 | Outpatient (CLI) | payer OTHER, MEDICAID ==
--- NOTE | 2020-10-10 15:30 | REPPI ---
INDICATION: M54.2 NECK PAIN. COMPARISON: None. TECHNIQUE: Plain-film series includes AP, lateral, flex-ex and oblique views of the cervical spine. FINDINGS: There is [id number] multilevel degenerative disc disease with loss of disc height that is more notable at the C6-7 level. There is minor endplate sclerosis at this level. No evidence of fracture or malalignment. No evidence of instability. The oblique view suggests narrowing of the C6-7 neural foramen. The remainder of the neural foramen appear unremarkable. IMPRESSION: Plain film study with evidence of [id number] degenerative disc disease more notable at the C6-7 level. The oblique view suggests narrowing of the C6-7 neural foramen. The remainder of the neural foramen appear unremarkable. <Electronically signed by Sonido Gibbs > 10/10/20 1525
== END ==
LOC: M PLAIMG 14:58
PROVIDERS: ATTEND Internal Medicine
DX: M54.2 Cervicalgia (principal)

== ENCOUNTER → 2021-01-05 | Outpatient (CLI) | payer OTHER ==
[2021-01-05 17:13] LABS: HEMOGLOBIN A1c 5.9 %
[2021-01-05 17:19] LABS: BLOOD UREA NITROGEN 11 MG/DL (7-18); CALCIUM LEVEL 9.5 MG/DL (8.5-10.1); CARBON DIOXIDE LEVEL 27 MEQ/L (21-32); CHLORIDE LEVEL 106 MEQ/L (98-107); CREATININE FOR GFR 0.77 MG/DL (0.55-1.30); GLOMERULAR FILTRATION RATE > 60.0 (>58); GLUCOSE, FASTING 90 MG/DL (70-100); POTASSIUM SERUM 4.7 MEQ/L (3.5-5.1); SODIUM LEVEL 141 MEQ/L (136-145)
== END ==
LOC: M PLAIMG 15:19
PROVIDERS: ATTEND Student in an Organized Health Care Education/Training Program
DX: R73.03 Prediabetes (principal); I10 Essential (primary) hypertension

== ENCOUNTER → 2021-08-20 | Outpatient (CLI) | payer OTHER | LOC: M RAD 11:01 | PROVIDERS: ATTEND Nurse Practitioner Family | DX: N92.6 Irregular menstruation, unspecified (principal); R10.2 Pelvic and perineal pain ==

== ENCOUNTER → 2021-09-19 | Outpatient (CLI) | payer OTHER ==
[2021-09-19 18:05] LABS: HEMATOCRIT 34.3 % (36.0-47.0); HEMOGLOBIN 10.2 g/dl (12.0-15.5); MEAN CORPUSCULAR HEMOGLOBIN 26.2 pg (27.0-33.0); MEAN CORPUSCULAR HGB CONC 29.7 g/dl (32.0-36.5); MEAN CORPUSCULAR VOLUME 88.2 fl (80.0-96.0); PLATELET COUNT, AUTOMATED 307 10^3/uL (150-450); RED BLOOD COUNT 3.89 10^6/uL (4.00-5.40); WHITE BLOOD COUNT 6.4 10^3/uL (4.0-10.0)
== END ==
LOC: M PLALAB 13:48
PROVIDERS: ATTEND Specialist
DX: N93.9 Abnormal uterine and vaginal bleeding, unspecified (principal)

== ENCOUNTER → 2021-10-03 | Outpatient (CLI) | payer OTHER | LOC: M WHC 09:35 | PROVIDERS: ATTEND Nurse Practitioner Family | DX: Z12.31 Encounter for screening mammogram for malignant neoplasm of breast (principal); Z80.0 Family history of malignant neoplasm of digestive organs ==

== ENCOUNTER → 2021-12-14 | Outpatient (CLI) | payer OTHER ==
[2021-12-14 13:22] LABS: HEMATOCRIT 38.6 % (36.0-47.0); HEMOGLOBIN 11.7 g/dl (12.0-15.5); MEAN CORPUSCULAR HEMOGLOBIN 25.3 pg (27.0-33.0); MEAN CORPUSCULAR HGB CONC 30.3 g/dl (32.0-36.5); MEAN CORPUSCULAR VOLUME 83.5 fl (80.0-96.0); PLATELET COUNT, AUTOMATED 332 10^3/uL (150-450); RED BLOOD COUNT 4.62 10^6/uL (4.00-5.40); WHITE BLOOD COUNT 4.8 10^3/uL (4.0-10.0)
[2021-12-14 15:43] LABS: BLOOD UREA NITROGEN 11 MG/DL (7-18); CALCIUM LEVEL 8.9 MG/DL (8.5-10.1); CARBON DIOXIDE LEVEL 29 MEQ/L (21-32); CHLORIDE LEVEL 108 MEQ/L (98-107); CHOLESTEROL LEVEL 187 MG/DL (<200); CHOLESTEROL RISK RATIO 4.675 (<5); FOLLICLE STIMULATING HORMONE 27.1 mIU/mL; GLOMERULAR FILTRATION RATE > 60.0 (>58); GLUCOSE, FASTING 89 MG/DL (70-100); HDL CHOLESTEROL 40 MG/DL (>40); LDL CHOLESTEROL 127 MG/DL (<100); LUTEINIZING HORMONE 19.8 mIU/mL; NON-HDL-C 147 MG/DL; POTASSIUM SERUM 4.1 MEQ/L (3.5-5.1); SODIUM LEVEL 139 MEQ/L (136-145); THYROID STIMULATING HORMONE 0.985 uIU/ML (0.358-3.740); TRIGLYCERIDES LEVEL 100 MG/DL (<150)
[2021-12-14 16:03] LABS: HEMOGLOBIN A1c 5.9 %
[2021-12-15 19:08] LABS: TESTOSTERONE FREE (DIRECT) 8.2 pg/mL (0.0-4.2)
== END ==
LOC: M PLALAB 12:12
PROVIDERS: ATTEND Student in an Organized Health Care Education/Training Program
DX: N93.9 Abnormal uterine and vaginal bleeding, unspecified (principal); E78.2 Mixed hyperlipidemia; R73.03 Prediabetes; I10 Essential (primary) hypertension

== ENCOUNTER → 2021-12-18 | Outpatient (REF) | payer OTHER ==
[2021-12-18 17:56] LABS: APPEARANCE, URINE CLEAR (CLEAR); BACTERIA, URINE AUTO NEGATIVE (NEGATIVE); BILIRUBIN, URINE AUTO NEGATIVE (NEGATIVE); BLOOD, URINE BLOOD NEGATIVE (NEGATIVE); COLOR, URINE YELLOW (YELLOW); GLUCOSE, URINE (UA) AUTO NEGATIVE (NEGATIVE); KETONE, URINE AUTO NEGATIVE (NEGATIVE); LEUKOCYTE ESTERASE, URINE AUTO TRACE (NEGATIVE); NITRITE, URINE AUTO NEGATIVE (NEGATIVE); PROTEIN, URINE AUTO NEGATIVE (NEGATIVE); RBC, URINE AUTO 0 /HPF (0-3); SPECIFIC GRAVITY URINE AUTO 1.013 (1.002-1.035); SQUAMOUS EPITHELIAL CELL UR AU 2 /HPF (0-6); UROBILINOGEN, URINE AUTO 0.2 mg/dL (0.0-2.0); WBC, URINE AUTO 1 /HPF (0-3)
== END ==
LOC: M SFHCPLAZ 16:47
PROVIDERS: ATTEND Student in an Organized Health Care Education/Training Program
DX: R39.15 Urgency of urination (principal)

== ENCOUNTER → 2021-12-26 | Outpatient (CLI) | payer OTHER | LOC: M WHC 13:01 | PROVIDERS: ATTEND Student in an Organized Health Care Education/Training Program | DX: N81.10 Cystocele, unspecified (principal) ==

== ENCOUNTER 2022-04-09 17:35 | Inpatient (IN) | payer OTHER ==
[~2022-04-09] VITALS: Ht 162.6 cm; Wt 110.7 kg
[2022-04-09] MEDS ORDERED: NS 1,000 ML IV ONE (18:10)
[2022-04-09] MEDS ORDERED: ONDANSETRON 4MG 2ML VIAL IV ONE (18:10)
[2022-04-09] MEDS ORDERED: PANTOPRAZOLE 40MG VIAL IV ONE (18:10)
[2022-04-09] MEDS ORDERED: MORPHINE 2 MG/ML 1ML VIAL IV ONE (18:10)
[2022-04-09] MEDS ORDERED: ISOVUE-370 76% 100ML VIAL As Ordered ONE (19:01)
[2022-04-09 19:04] LABS: BASO # 0.1 10^3/uL (0.0-0.2); BASO % 0.5 % (0.0-1.0); EOS # 0.2 10^3/uL (0.0-0.5); EOS % 1.8 % (0.0-3.0); HEMATOCRIT 32.7 % (36.0-47.0); HEMOGLOBIN 9.8 g/dl (12.0-15.5); LYMPH # 1.1 10^3/uL (1.5-5.0); LYMPH % 11.3 % (24.0-44.0); MEAN CORPUSCULAR HEMOGLOBIN 26.3 pg (27.0-33.0); MEAN CORPUSCULAR VOLUME 87.7 fl (80.0-96.0); MONO # 0.6 10^3/uL (0.0-0.8); MONO % 6.2 % (2.0-8.0); NEUTROPHILS # 7.5 10^3/uL (1.5-8.5); NEUTROPHILS % 79.7 % (36.0-66.0); PLATELET COUNT, AUTOMATED 337 10^3/uL (150-450); RED BLOOD COUNT 3.73 10^6/uL (4.00-5.40); WHITE BLOOD COUNT 9.4 10^3/uL (4.0-10.0)
[2022-04-09 19:37] LABS: CK-MB VALUE MASS 3.5 NG/ML (<3.6); MB/CK RELATIVE INDEX 1.27 (< OR =4)
[2022-04-09 19:38] LABS: ALBUMIN 3.5 GM/DL (3.2-5.2); BILIRUBIN,DIRECT 0.2 MG/DL (0.0-0.2); BILIRUBIN,TOTAL 0.5 MG/DL (0.2-1.0); TOTAL PROTEIN 7.4 GM/DL (6.4-8.2)
[2022-04-09] MEDS ORDERED: MORPHINE 2 MG/ML 1ML VIAL IV PRN (21:45)
[2022-04-09 22:12] LABS: POTASSIUM SERUM 4.3 MEQ/L (3.5-5.1)
[2022-04-09 22:14] LABS: RSV AMPLIFICATION NEGATIVE (NEGATIVE)
[2022-04-09] MEDS ORDERED: LISI20TA33 PO (23:09)
[2022-04-09] MEDS ORDERED: ACET-897 PO (23:09)
[2022-04-09] MEDS ORDERED: OXYB5TAB10 PO (23:09)
[2022-04-09] MEDS ORDERED: SPIR50TA4 PO (23:09)
[2022-04-09] MEDS ORDERED: HOME MED LIST COMPLETE! XX SCH (23:10)
[2022-04-09] MEDS ORDERED: MAALOX 30 ML SUSP *UDC PO PRN (23:30)
[2022-04-09] MEDS ORDERED: ACETAMINOPHEN TAB 650MG DOSE (2X325MG) PO PRN (23:30)
[2022-04-09] MEDS ORDERED: MOM 30ML SUSPENSION UDC PO PRN (23:30)
[2022-04-10 01:17] VITALS: BP 144/81
[2022-04-10] MEDS: oxyBUTYnin 5 MG TAB PO SCH ×3 (01:43→20:18)
[2022-04-10] MEDS: LR 1,000 ML IV SCH ×4 (01:43→22:36)
[2022-04-10] MEDS: HYDROmorphone 2 MG TAB PO PRN ×2 (01:45→13:23)
[2022-04-10 06:00] VITALS: BP 136/80
[2022-04-10 06:08] LABS: BASO % 0.6 % (0.0-1.0); EOS # 0.1 10^3/uL (0.0-0.5); EOS % 1.9 % (0.0-3.0); HEMATOCRIT 29.6 % (36.0-47.0); HEMOGLOBIN 8.8 g/dl (12.0-15.5); LYMPH # 1.4 10^3/uL (1.5-5.0); LYMPH % 29.5 % (24.0-44.0); MEAN CORPUSCULAR HEMOGLOBIN 26.3 pg (27.0-33.0); MEAN CORPUSCULAR HGB CONC 29.7 g/dl (32.0-36.5); MEAN CORPUSCULAR VOLUME 88.4 fl (80.0-96.0); MONO # 0.4 10^3/uL (0.0-0.8); MONO % 8.9 % (2.0-8.0); NEUTROPHILS # 2.8 10^3/uL (1.5-8.5); NEUTROPHILS % 58.7 % (36.0-66.0); PLATELET COUNT, AUTOMATED 308 10^3/uL (150-450); RED BLOOD COUNT 3.35 10^6/uL (4.00-5.40); WHITE BLOOD COUNT 4.7 10^3/uL (4.0-10.0)
[2022-04-10 06:35] LABS: ALBUMIN 3.1 GM/DL (3.2-5.2); ALT/SGPT 222 U/L (12-78); BILIRUBIN,TOTAL 0.5 MG/DL (0.2-1.0); BLOOD UREA NITROGEN 11 MG/DL (7-18); CALCIUM LEVEL 8.3 MG/DL (8.5-10.1); CARBON DIOXIDE LEVEL 26 MEQ/L (21-32); CHLORIDE LEVEL 108 MEQ/L (98-107); CHOLESTEROL LEVEL 156 MG/DL (<200); CHOLESTEROL RISK RATIO 4.216 (<5); CREATININE FOR GFR 0.78 MG/DL (0.55-1.30); GLOMERULAR FILTRATION RATE > 60.0 (>58); GLUCOSE, FASTING 100 MG/DL (70-100); HDL CHOLESTEROL 37 MG/DL (>40); LDL CHOLESTEROL 97 MG/DL (<100); NON-HDL-C 119 MG/DL; POTASSIUM SERUM 4.3 MEQ/L (3.5-5.1); SODIUM LEVEL 138 MEQ/L (136-145); TOTAL PROTEIN 6.4 GM/DL (6.4-8.2); TRIGLYCERIDES LEVEL 108 MG/DL (<150)
[2022-04-10] MEDS ORDERED: HOME MED LIST COMPLETE! XX SCH (07:15)
[2022-04-10] MEDS: DOCUSATE SODIUM 100MG CAPSULE PO SCH ×2 (08:52→20:17)
[2022-04-10] MEDS: ENOXAPARIN 40MG/0.4ML SYRINGE (J1650 PER 10MG) SC SCH (08:53)
[2022-04-10] MEDS ORDERED: INFLUENZA QUADRIVALENT PF VACCINE 0.5ML SYRINGE IM.IMMUN ONE (09:00)
[2022-04-10 10:00] VITALS: BP 134/72
[2022-04-10 10:40] LABS: BILIRUBIN,DIRECT 0.1 MG/DL (0.0-0.2)
[2022-04-10 14:00] VITALS: BP 126/74
[2022-04-10] MEDS ORDERED: MORPHINE 2 MG/ML 1ML VIAL IV PRN (15:20)
[2022-04-10 18:00] VITALS: BP 124/73
[2022-04-10 21:06] VITALS: BP 117/70
[2022-04-10 23:14] LABS: HEPATITIS B SURFACE ANTIGEN NEGATIVE (NEGATIVE)
[2022-04-10 23:41] LABS: HEPATITIS C VIRUS ABY INDEX < 0.0 INDEX (<0.8)
[2022-04-10 23:42] LABS: HEPATITIS B CORE ANTIBODY IGM NEGATIVE (NEGATIVE)
[2022-04-11 02:00] VITALS: BP 117/69
[2022-04-11] MEDS: LR 1,000 ML IV SCH (05:21)
[2022-04-11 05:48] VITALS: BP 145/77
[2022-04-11 05:58] LABS: BASO % 0.8 % (0.0-1.0); EOS # 0.1 10^3/uL (0.0-0.5); EOS % 3.4 % (0.0-3.0); HEMATOCRIT 28.2 % (36.0-47.0); HEMOGLOBIN 8.4 g/dl (12.0-15.5); LYMPH # 1.4 10^3/uL (1.5-5.0); LYMPH % 37.3 % (24.0-44.0); MEAN CORPUSCULAR HEMOGLOBIN 26.2 pg (27.0-33.0); MEAN CORPUSCULAR HGB CONC 29.8 g/dl (32.0-36.5); MEAN CORPUSCULAR VOLUME 87.9 fl (80.0-96.0); MONO # 0.4 10^3/uL (0.0-0.8); MONO % 9.6 % (2.0-8.0); NEUTROPHILS # 1.9 10^3/uL (1.5-8.5); NEUTROPHILS % 48.6 % (36.0-66.0); PLATELET COUNT, AUTOMATED 282 10^3/uL (150-450); RED BLOOD COUNT 3.21 10^6/uL (4.00-5.40); WHITE BLOOD COUNT 3.9 10^3/uL (4.0-10.0)
[2022-04-11 06:39] LABS: ALBUMIN 3.1 GM/DL (3.2-5.2); ALT/SGPT 143 U/L (12-78); BILIRUBIN,TOTAL 0.7 MG/DL (0.2-1.0); BLOOD UREA NITROGEN 9 MG/DL (7-18); CALCIUM LEVEL 8.6 MG/DL (8.5-10.1); CARBON DIOXIDE LEVEL 28 MEQ/L (21-32); CHLORIDE LEVEL 107 MEQ/L (98-107); CREATININE FOR GFR 0.75 MG/DL (0.55-1.30); GLOMERULAR FILTRATION RATE > 60.0 (>58); GLUCOSE, FASTING 86 MG/DL (70-100); SODIUM LEVEL 139 MEQ/L (136-145); TOTAL PROTEIN 6.3 GM/DL (6.4-8.2)
[2022-04-11] MEDS ORDERED: MORPHINE 2 MG/ML 1ML VIAL IV PRN (07:25)
[2022-04-11] MEDS: DOCUSATE SODIUM 100MG CAPSULE PO SCH (08:49)
[2022-04-11 08:50] VITALS: BP 158/90
[2022-04-11] MEDS: oxyBUTYnin 5 MG TAB PO SCH (08:50)
[2022-04-11] MEDS: ENOXAPARIN 40MG/0.4ML SYRINGE (J1650 PER 10MG) SC SCH (08:50)
[2022-04-11 10:00] VITALS: BP 141/81
[2022-04-11 14:00] VITALS: BP 140/90
== END 2022-04-11 17:58 | disposition left against medical advice (07) | DRG 282 ==
LOC: EDBD 17:35 → M ED 17:35 → M ED INP 21:51 → ENRESERV 23:01 → M MSPAV 04-10 01:11
PROVIDERS: ADMIT Family Medicine; ATTEND Internal Medicine
DX: K85.10 Biliary acute pancreatitis without necrosis or infection (principal); U07.1 COVID-19; Z68.41 Body mass index [BMI] 40.0-44.9, adult; R73.03 Prediabetes; E66.9 Obesity, unspecified; R16.0 Hepatomegaly, not elsewhere classified; E78.5 Hyperlipidemia, unspecified; K80.20 Calculus of gallbladder without cholecystitis without obstruction; I10 Essential (primary) hypertension; Z79.899 Other long term (current) drug therapy

== ENCOUNTER → 2022-04-17 | Outpatient (REF) | payer OTHER ==
[~2022-04-17] MED LIST changes: +ACET-897 PO; +LISI20TA33 PO; +OXYB5TAB10 PO; +SPIR50TA4 PO
== END ==
LOC: M SFHCDERM 12:40
PROVIDERS: ATTEND Nurse Practitioner Family
DX: D17.39 Benign lipomatous neoplasm of skin and subcutaneous tissue of other sites (principal)

== ENCOUNTER → 2022-04-23 | Outpatient (CLI) | payer OTHER ==
[2022-04-23 15:37] LABS: HEMOGLOBIN 10.8 g/dl (12.0-15.5); MEAN CORPUSCULAR HEMOGLOBIN 25.8 pg (27.0-33.0); MEAN CORPUSCULAR VOLUME 86.1 fl (80.0-96.0); PLATELET COUNT, AUTOMATED 359 10^3/uL (150-450); RED BLOOD COUNT 4.18 10^6/uL (4.00-5.40); WHITE BLOOD COUNT 4.9 10^3/uL (4.0-10.0)
[2022-04-23 16:26] LABS: ALBUMIN 4.1 GM/DL (3.2-5.2); BILIRUBIN,DIRECT 0.2 MG/DL (0.0-0.2); BILIRUBIN,TOTAL 0.8 MG/DL (0.2-1.0)
== END ==
LOC: M PLALAB 14:00
PROVIDERS: ATTEND Student in an Organized Health Care Education/Training Program
DX: K76.0 Fatty (change of) liver, not elsewhere classified (principal)

== ENCOUNTER → 2022-05-14 | Outpatient (CLI) | payer OTHER | LOC: M CARPUL 09:25 | PROVIDERS: ATTEND Student in an Organized Health Care Education/Training Program | DX: R55 Syncope and collapse (principal) ==

== ENCOUNTER 2022-05-30 04:33 | Emergency (ER) | payer OTHER ==
[~2022-05-30] VITALS: Ht 162.6 cm; Wt 102.3 kg
[2022-05-30 04:55] LABS: BASO % 0.5 % (0.0-1.0); EOS # 0.1 10^3/uL (0.0-0.5); EOS % 1.5 % (0.0-3.0); HEMATOCRIT 35.4 % (36.0-47.0); HEMOGLOBIN 10.4 g/dl (12.0-15.5); LYMPH # 1.4 10^3/uL (1.5-5.0); LYMPH % 21.7 % (24.0-44.0); MEAN CORPUSCULAR HEMOGLOBIN 24.5 pg (27.0-33.0); MEAN CORPUSCULAR HGB CONC 29.4 g/dl (32.0-36.5); MEAN CORPUSCULAR VOLUME 83.3 fl (80.0-96.0); MONO # 0.5 10^3/uL (0.0-0.8); MONO % 6.9 % (2.0-8.0); NEUTROPHILS # 4.6 10^3/uL (1.5-8.5); NEUTROPHILS % 68.8 % (36.0-66.0); PLATELET COUNT, AUTOMATED 297 10^3/uL (150-450); RED BLOOD COUNT 4.25 10^6/uL (4.00-5.40); WHITE BLOOD COUNT 6.7 10^3/uL (4.0-10.0)
[2022-05-30 05:47] LABS: ALBUMIN 3.9 G/DL (3.2-5.2); ALT/SGPT 124 U/L (7.0-40); AMYLASE 796 U/L (30-118); BILIRUBIN,DIRECT 0.3 MG/DL (<0.4); BILIRUBIN,TOTAL 0.7 MG/DL (0.3-1.2); BLOOD UREA NITROGEN 15 MG/DL (9-23); CALCIUM LEVEL 8.8 MG/DL (8.5-10.1); CARBON DIOXIDE LEVEL 25 MMOL/L (20-31); CHLORIDE LEVEL 105 MMOL/L (98-107); CREATININE FOR GFR 0.82 MG/DL (0.55-1.30); GLOMERULAR FILTRATION RATE > 60.0 (>58); GLUCOSE, FASTING 138 MG/DL (60-100); LIPASE 700.00001 U/L (12-53); POTASSIUM SERUM 4.1 MMOL/L (3.5-5.1); SODIUM LEVEL 139 MMOL/L (136-145); TOTAL PROTEIN 7.2 G/DL (5.7-8.2)
[2022-05-30] MEDS ORDERED: ISOVUE-370 76% 100ML VIAL As Ordered ONE (07:30)
[2022-05-30 08:03] VITALS: BP 129/84
[2022-05-30 08:28] LABS: URINE PREG TEST NEGATIVE (NEGATIVE)
== END 2022-05-30 09:20 | disposition home or self-care (01) ==
LOC: M ED 04:33
DX: K85.90 Acute pancreatitis without necrosis or infection, unspecified (principal); R11.0 Nausea; K80.20 Calculus of gallbladder without cholecystitis without obstruction; R16.0 Hepatomegaly, not elsewhere classified; R73.03 Prediabetes; I10 Essential (primary) hypertension; Z90.49 Acquired absence of other specified parts of digestive tract; Z79.899 Other long term (current) drug therapy

== ENCOUNTER → 2022-07-23 | Outpatient (CLI) | payer OTHER ==
[2022-07-23 15:27] LABS: BASO # 0.1 10^3/uL (0.0-0.2); EOS # 0.2 10^3/uL (0.0-0.5); EOS % 2.4 % (0.0-3.0); HEMATOCRIT 38.8 % (36.0-47.0); HEMOGLOBIN 11.7 g/dl (12.0-15.5); LYMPH # 1.8 10^3/uL (1.5-5.0); LYMPH % 28.8 % (24.0-44.0); MEAN CORPUSCULAR HEMOGLOBIN 24.5 pg (27.0-33.0); MEAN CORPUSCULAR HGB CONC 30.2 g/dl (32.0-36.5); MEAN CORPUSCULAR VOLUME 81.3 fl (80.0-96.0); MONO # 0.5 10^3/uL (0.0-0.8); MONO % 8.6 % (2.0-8.0); NEUTROPHILS # 3.7 10^3/uL (1.5-8.5); NEUTROPHILS % 58.6 % (36.0-66.0); PLATELET COUNT, AUTOMATED 321 10^3/uL (150-450); RED BLOOD COUNT 4.77 10^6/uL (4.00-5.40); WHITE BLOOD COUNT 6.3 10^3/uL (4.0-10.0)
[2022-07-23 15:34] LABS: ALBUMIN 3.6 G/DL (3.2-5.2); ALKALINE PHOSPHATASE 104 U/L (46-116); ALT/SGPT 21 U/L (7.0-40); AST/SGOT 21 U/L (<34); BILIRUBIN,TOTAL 0.6 MG/DL (0.3-1.2); BLOOD UREA NITROGEN 14 MG/DL (9-23); CARBON DIOXIDE LEVEL 26 MMOL/L (20-31); CHLORIDE LEVEL 103 MMOL/L (98-107); CREATININE FOR GFR 0.74 MG/DL (0.55-1.30); GLOMERULAR FILTRATION RATE > 60.0 (>51); GLUCOSE, FASTING 75 MG/DL (60-100); POTASSIUM SERUM 4.7 MMOL/L (3.5-5.1); SODIUM LEVEL 136 MMOL/L (136-145); TOTAL PROTEIN 7.6 G/DL (5.7-8.2)
[2022-07-23 15:36] LABS: INR 0.97; PROTHROMBIN TIME 13.1 SECONDS (12.5-14.5)
[2022-07-23 15:59] LABS: HEMOGLOBIN A1c 5.5 % (4.0-6.0)
== END ==
LOC: M PLALAB 12:05
PROVIDERS: ATTEND Family Medicine
DX: I10 Essential (primary) hypertension (principal)

== ENCOUNTER → 2022-07-24 | Outpatient (CLI) | payer OTHER | LOC: M LABSMTC 11:14 | PROVIDERS: ATTEND Anesthesiology | DX: Z01.812 Encounter for preprocedural laboratory examination (principal); Z20.822 Contact with and (suspected) exposure to COVID-19 ==

== ENCOUNTER → 2022-08-20 | Outpatient (CLI) | payer OTHER ==
[2022-08-20 11:12] LABS: BLOOD UREA NITROGEN 15 MG/DL (9-23); CARBON DIOXIDE LEVEL 26 MMOL/L (20-31); CHLORIDE LEVEL 106 MMOL/L (98-107); CREATININE FOR GFR 0.91 MG/DL (0.55-1.30); GLOMERULAR FILTRATION RATE > 60.0 (>51); GLUCOSE, FASTING 119 MG/DL (60-100); IRON (FE) 28 UG/DL (50-170); PERCENT SATURATION 7.3 % (13.2-45.0); POTASSIUM SERUM 4.1 MMOL/L (3.5-5.1); SODIUM LEVEL 139 MMOL/L (136-145); TOTAL IRON BINDING CAPACITY 382 UG/DL (250-425)
[2022-08-20 11:18] LABS: FOLATE 9.35 NG/ML (>5.4)
[2022-08-20 11:19] LABS: VITAMIN B12 LEVEL 354 PG/ML (211-911)
[2022-08-20 11:20] LABS: FERRITIN 2.9 NG/ML (7.3-270.7)
== END ==
LOC: M PLALAB 08:27
PROVIDERS: ATTEND Student in an Organized Health Care Education/Training Program
DX: D64.9 Anemia, unspecified (principal); L68.0 Hirsutism

== ENCOUNTER → 2022-09-02 | Outpatient (CLI) | payer OTHER ==
[~2022-09-02] MED LIST changes: +FERR324T21 PO; +SPIR-10 PO
== END ==
LOC: M LABSMTC 07:30
PROVIDERS: ATTEND Anesthesiology
DX: Z01.812 Encounter for preprocedural laboratory examination (principal); Z20.822 Contact with and (suspected) exposure to COVID-19

== ENCOUNTER 2022-09-05 09:03 | Day surgery (SDC) | payer OTHER ==
[~2022-09-05] VITALS: Ht 162.6 cm; Wt 106.0 kg
[~2022-09-05 09:03] MED LIST changes: +AMPICILLIN SOD/SULBACTAM SOD 3 GM in D5W MINI-BAG PLUS 100 ML IV ONE; +CelecoXIB 400 MG CAP PO ONE; +LIDOCAINE 2% 100MG/5ML SDV (FOR ANES.) As Ordered ONE; +MIDAZOLAM INJ 2MG/2ML VIAL As Ordered ONE; +ONDANSETRON 4MG 2ML VIAL As Ordered ONE; +ROCURONIUM BROMIDE 50MG/5ML VIAL As Ordered ONE; +fentaNYL 100 MCG/2 ML INJECTION As Ordered ONE; +propofoL 200 MG/20 ML VIAL As Ordered ONE
[2022-09-05] MEDS ORDERED: INDOCYANINE GREEN 25MG VIAL (IC-GREEN) As Ordered ONE (09:07)
[2022-09-05] MEDS ORDERED: LR 1,000 ML IV SCH (09:45)
[2022-09-05] MEDS ORDERED: BUPIVACAINE HCL 0.25% 30ML VIAL As Ordered ONE (10:06)
[2022-09-05] MEDS ORDERED: LIDOCAINE 1% SDV 30ML VIAL As Ordered ONE (10:06)
[2022-09-05] MEDS ORDERED: ACETAMINOPHEN 1000MG 100ML IV BAG As Ordered ONE (10:43)
[2022-09-05] MEDS ORDERED: ePHEDrine SULFATE 25 MG/5 ML(5MG/ML) SYRINGE As Ordered ONE (10:55)
[2022-09-05] MEDS ORDERED: KETOROLAC 60MG 2ML VIAL As Ordered ONE (11:02)
[2022-09-05] MEDS ORDERED: ONDANSETRON 4MG 2ML VIAL IV PRN (11:50)
[2022-09-05] MEDS ORDERED: METOCLOPRAMIDE INJ 10MG/2ML VIAL IV PRN (11:50)
[2022-09-05] MEDS ORDERED: HYDROMORPHONE HCL 0.5 MG/ 0.5 ML SYRINGE IV PRN (11:50)
[2022-09-05] MEDS: fentaNYL 100 MCG/2 ML INJECTION IV PRN ×4 (12:12→12:42)
[2022-09-05] MEDS: oxyCODONE 5MG TAB PO PRN ×2 (12:13→12:42)
[2022-09-05] MEDS ORDERED: NORCO, ANEXSIA 5/325MG TABLET (HYDROcodone/ACETAMINOPHEN) PO PRN ×2 (12:35)
[2022-09-05 14:08] VITALS: BP 144/98
[2022-09-05] MEDS ORDERED: KETOROLAC 30 MG/ML 1ML VIAL IV SCH (18:00)
== END 2022-09-05 14:15 | disposition home or self-care (01) ==
LOC: M SDC 09:03
PROVIDERS: ATTEND Surgery
DX: K80.10 Calculus of gallbladder with chronic cholecystitis without obstruction (principal); I10 Essential (primary) hypertension; E78.00 Pure hypercholesterolemia, unspecified; R51.9 Headache, unspecified; Z79.899 Other long term (current) drug therapy
CPT/HCPCS: 47563; 64488; 81025; 88304; J1100; J2250; J2405; J2765; J3010; S2900

== ENCOUNTER → 2022-10-02 | Outpatient (CLI) | payer OTHER ==
[~2022-10-02] MED LIST changes: -AMPICILLIN SOD/SULBACTAM SOD 3 GM in D5W MINI-BAG PLUS 100 ML IV ONE; -CelecoXIB 400 MG CAP PO ONE; -LIDOCAINE 2% 100MG/5ML SDV (FOR ANES.) As Ordered ONE; -MIDAZOLAM INJ 2MG/2ML VIAL As Ordered ONE; -ONDANSETRON 4MG 2ML VIAL As Ordered ONE; -ROCURONIUM BROMIDE 50MG/5ML VIAL As Ordered ONE; -fentaNYL 100 MCG/2 ML INJECTION As Ordered ONE; -propofoL 200 MG/20 ML VIAL As Ordered ONE
== END ==
LOC: M SLEEP HO 11:32
PROVIDERS: ATTEND Student in an Organized Health Care Education/Training Program
DX: G47.9 Sleep disorder, unspecified (principal)

== ENCOUNTER → 2022-11-27 | Outpatient (CLI) | payer OTHER ==
[2022-11-27 16:08] LABS: HEMATOCRIT 41.8 % (36.0-47.0); HEMOGLOBIN 13.6 g/dl (12.0-15.5); MEAN CORPUSCULAR HEMOGLOBIN 29.1 pg (27.0-33.0); MEAN CORPUSCULAR HGB CONC 32.5 g/dl (32.0-36.5); MEAN CORPUSCULAR VOLUME 89.3 fl (80.0-96.0); PLATELET COUNT, AUTOMATED 266 10^3/uL (150-450); RED BLOOD COUNT 4.68 10^6/uL (4.00-5.40); WHITE BLOOD COUNT 8.1 10^3/uL (4.0-10.0)
[2022-11-27 16:16] LABS: ALBUMIN 3.5 G/DL (3.2-5.2); ALKALINE PHOSPHATASE 104 U/L (46-116); ALT/SGPT 24 U/L (7.0-40); AST/SGOT 17 U/L (<34); BILIRUBIN,TOTAL 0.8 MG/DL (0.3-1.2); BLOOD UREA NITROGEN 10 MG/DL (9-23); CALCIUM LEVEL 8.8 MG/DL (8.5-10.1); CARBON DIOXIDE LEVEL 26 MMOL/L (20-31); CHLORIDE LEVEL 105 MMOL/L (98-107); CHOLESTEROL LEVEL 176 MG/DL (<200); CHOLESTEROL RISK RATIO 3.61 (<5); CREATININE FOR GFR 0.74 MG/DL (0.55-1.30); GLOMERULAR FILTRATION RATE > 60.0 (>51); GLUCOSE, FASTING 84 MG/DL (60-100); HDL CHOLESTEROL 48.7 MG/DL (>40); LDL CHOLESTEROL 101.7 MG/DL (<100); NON-HDL-C 127.3 MG/DL; POTASSIUM SERUM 4.3 MMOL/L (3.5-5.1); SODIUM LEVEL 139 MMOL/L (136-145); TOTAL PROTEIN 7.3 G/DL (5.7-8.2); TRIGLYCERIDES LEVEL 128 MG/DL (<150)
== END ==
LOC: M PLALAB 12:24
PROVIDERS: ATTEND Student in an Organized Health Care Education/Training Program
DX: R10.11 Right upper quadrant pain (principal); K76.0 Fatty (change of) liver, not elsewhere classified

== ENCOUNTER → 2022-12-13 | Outpatient (CLI) | payer OTHER ==
[~2022-12-13] MED LIST changes: +GASTROGRAFIN SOLUTION 30ML As Ordered ONE; +ISOVUE-370 76% 100ML VIAL As Ordered ONE
== END ==
LOC: M RAD 09:59
PROVIDERS: ATTEND Student in an Organized Health Care Education/Training Program
DX: R10.11 Right upper quadrant pain (principal)
CPT/HCPCS: 74177; Q9963; Q9967

== ENCOUNTER 2023-02-21 19:28 | Emergency (ER) | payer MEDICAID, OTHER ==
[~2023-02-21] VITALS: Ht 162.6 cm; Wt 108.3 kg
[~2023-02-21 19:28] MED LIST changes: -GASTROGRAFIN SOLUTION 30ML As Ordered ONE; -ISOVUE-370 76% 100ML VIAL As Ordered ONE
[2023-02-21] MEDS ORDERED: HYDR12.55 PO (19:37)
[2023-02-21 20:30] VITALS: TEMP 98.5
[2023-02-21 20:35] VITALS: BP 164/71
[2023-02-21] MEDS ORDERED: hydroCHLOROthiazide 12.5 MG CAPSULE PO ONE (20:35)
[2023-02-21] MEDS ORDERED: METOCLOPRAMIDE INJ 10MG/2ML VIAL IV ONE (20:35)
[2023-02-21] MEDS ORDERED: diphenhydrAMINE 50MG/ML VIAL IV ONE (20:35)
[2023-02-21] MEDS ORDERED: NS 1,000 ML IV ONE (20:35)
[2023-02-21] MEDS ORDERED: SPIRONOLACTONE 50 MG TAB PO ONE (20:35)
[2023-02-21] MEDS ORDERED: KETOROLAC 30 MG/ML 1ML VIAL IV ONE (20:35)
[2023-02-21 20:45] LABS: BASO % 0.7 % (0.0-1.0); EOS # 0.2 10^3/uL (0.0-0.5); EOS % 3.7 % (0.0-3.0); HEMATOCRIT 39.1 % (36.0-47.0); HEMOGLOBIN 12.5 g/dl (12.0-15.5); LYMPH # 1.8 10^3/uL (1.5-5.0); LYMPH % 34.1 % (24.0-44.0); MEAN CORPUSCULAR HEMOGLOBIN 28.3 pg (27.0-33.0); MEAN CORPUSCULAR VOLUME 88.7 fl (80.0-96.0); MONO # 0.5 10^3/uL (0.0-0.8); MONO % 10.1 % (2.0-8.0); NEUTROPHILS # 2.7 10^3/uL (1.5-8.5); PLATELET COUNT, AUTOMATED 265 10^3/uL (150-450); RED BLOOD COUNT 4.41 10^6/uL (4.00-5.40); WHITE BLOOD COUNT 5.4 10^3/uL (4.0-10.0)
[2023-02-21 20:52] LABS: BLOOD UREA NITROGEN 10 MG/DL (9-23); CALCIUM LEVEL 9.1 MG/DL (8.5-10.1); CARBON DIOXIDE LEVEL 27 MMOL/L (20-31); CHLORIDE LEVEL 107 MMOL/L (98-107); CREATININE FOR GFR 0.81 MG/DL (0.55-1.30); GLOMERULAR FILTRATION RATE > 60.0 (>51); GLUCOSE, FASTING 113 MG/DL (60-100); SODIUM LEVEL 141 MMOL/L (136-145)
[2023-02-21 23:30] VITALS: BP 135/82; O2SAT 95
[2023-02-21 23:54] LABS: APPEARANCE, URINE HAZY (CLEAR); BACTERIA, URINE AUTO NEGATIVE (NEGATIVE); BILIRUBIN, URINE AUTO NEGATIVE (NEGATIVE); BLOOD, URINE BLOOD NEGATIVE (NEGATIVE); COLOR, URINE YELLOW (YELLOW); GLUCOSE, URINE (UA) AUTO NEGATIVE (NEGATIVE); KETONE, URINE AUTO NEGATIVE (NEGATIVE); LEUKOCYTE ESTERASE, URINE AUTO TRACE (NEGATIVE); MUCUS, URINE SMALL (NEGATIVE); NITRITE, URINE AUTO NEGATIVE (NEGATIVE); PROTEIN, URINE AUTO NEGATIVE (NEGATIVE); RBC, URINE AUTO 2 /HPF (0-3); SQUAMOUS EPITHELIAL CELL UR AU 9 /HPF (0-6); UROBILINOGEN, URINE AUTO 0.2 mg/dL (0.0-2.0); WBC, URINE AUTO 4 /HPF (0-3)
[2023-02-22] MEDS ORDERED: HYDR12.55 PO (00:11)
[2023-02-22] MEDS ORDERED: SPIR-10 PO (00:11)
[2023-02-22] MEDS ORDERED: LISI20TA33 PO (00:11)
== END 2023-02-22 00:30 | disposition home or self-care (01) ==
LOC: M ED 19:28
DX: I16.0 Hypertensive urgency (principal); R73.01 Impaired fasting glucose; N93.9 Abnormal uterine and vaginal bleeding, unspecified; E78.5 Hyperlipidemia, unspecified; Z79.899 Other long term (current) drug therapy
CPT/HCPCS: 70450; 71045; 80048; 81001; 85025; 96361; 96374; 96375; 99284; J1200; J1885; J2765

== ENCOUNTER → 2023-07-25 | Outpatient (CLI) | payer OTHER ==
[~2023-07-25] MED LIST changes: +HYDR12.55 PO; -OXYB5TAB10 PO; +OXYB5TAB11 PO
== END ==
LOC: M PLAIMG 10:19
PROVIDERS: ATTEND Student in an Organized Health Care Education/Training Program
DX: M16.11 Unilateral primary osteoarthritis, right hip (principal)

== ENCOUNTER → 2023-07-25 | Outpatient (REF) | payer OTHER | LOC: M SFHCPLAZ 13:40 | PROVIDERS: ATTEND Family Medicine | DX: R39.15 Urgency of urination (principal) ==

== ENCOUNTER → 2023-09-16 | Outpatient (CLI) | payer OTHER ==
[~2023-09-16] MED LIST changes: -OXYB5TAB11 PO; +OXYB5TAB14 PO
== END ==
LOC: M PLAIMG 10:07
PROVIDERS: ATTEND Student in an Organized Health Care Education/Training Program
DX: M54.12 Radiculopathy, cervical region (principal)

== ENCOUNTER → 2023-11-14 | Outpatient (CLI) | payer OTHER ==
[2023-11-14 13:33] LABS: ALBUMIN 3.7 G/DL (3.2-5.2); ALKALINE PHOSPHATASE 95 U/L (46-116); ALT/SGPT 78 U/L (7.0-40); AST/SGOT 63 U/L (<34); BILIRUBIN,TOTAL 1.1 MG/DL (0.3-1.2); BLOOD UREA NITROGEN 13 MG/DL (9-23); CALCIUM LEVEL 9.6 MG/DL (8.5-10.1); CARBON DIOXIDE LEVEL 27 MMOL/L (20-31); CHLORIDE LEVEL 107 MMOL/L (98-107); CHOLESTEROL LEVEL 219 MG/DL (<200); CHOLESTEROL RISK RATIO 4.78 (<5); GLOMERULAR FILTRATION RATE > 60.0 (>51); GLUCOSE, FASTING 119 MG/DL (60-100); HDL CHOLESTEROL 45.8 MG/DL (>40); LDL CHOLESTEROL 147.8 MG/DL (<100); NON-HDL-C 173.2 MG/DL; POTASSIUM SERUM 5.2 MMOL/L (3.5-5.1); SODIUM LEVEL 140 MMOL/L (136-145); TOTAL PROTEIN 7.6 G/DL (5.7-8.2); TRIGLYCERIDES LEVEL 127 MG/DL (<150)
[2023-11-14 13:35] LABS: THYROID STIMULATING HORMONE 1.174 uIU/ML (0.55-4.78)
[2023-11-14 13:41] LABS: HEMOGLOBIN A1c 5.9 % (4.0-6.0)
== END ==
LOC: M PLALAB 09:33
PROVIDERS: ATTEND Student in an Organized Health Care Education/Training Program
DX: Z13.1 Encounter for screening for diabetes mellitus (principal); E66.01 Morbid (severe) obesity due to excess calories; E78.2 Mixed hyperlipidemia; I10 Essential (primary) hypertension

== ENCOUNTER → 2025-01-28 | Outpatient (REF) | payer OTHER ==
[2025-01-28 13:19] LABS: APPEARANCE, URINE CLOUDY (CLEAR); BACTERIA, URINE AUTO 1+ (NEGATIVE); BILIRUBIN, URINE AUTO NEGATIVE (NEGATIVE); BLOOD, URINE BLOOD NEGATIVE (NEGATIVE); GLUCOSE, URINE (UA) AUTO NEGATIVE (NEGATIVE); KETONE, URINE AUTO NEGATIVE (NEGATIVE); LEUKOCYTE ESTERASE, URINE AUTO 3+ (NEGATIVE); NITRITE, URINE AUTO NEGATIVE (NEGATIVE); PROTEIN, URINE AUTO 1+ mg/dL (NEGATIVE); RBC, URINE AUTO 9 /HPF (0-3); SPECIFIC GRAVITY URINE AUTO 1.019 (1.002-1.035); SQUAMOUS EPITHELIAL CELL UR AU 20 /HPF (0-6); TRANSITIONAL EPITHELIAL AUTO 3 /HPF; UROBILINOGEN, URINE AUTO 0.2 mg/dL (0.0-2.0); WBC, URINE AUTO 135 /HPF (0-3)
== END ==
LOC: M LAB REF 12:16
PROVIDERS: ATTEND Physician Assistant
DX: N39.0 Urinary tract infection, site not specified (principal)